=== PATIENT | male | born 2000 | race Caucasian/White ===

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

== ENCOUNTER 2021-10-16 15:55 | Outpatient (CLI) | payer OTHER | END 2021-10-16 15:56 | disposition home or self-care (01) | LOC: MADRAD 15:55 | PROVIDERS: ATTEND Physician Assistant | DX: M54.2 Cervicalgia (principal); M25.511 Pain in right shoulder | CPT/HCPCS: 72040 ==